=== PATIENT | female | born 1965 | race Caucasian/White ===

== ENCOUNTER 2017-01-05 18:52 | Emergency (ER) | payer OTHER ==
[~2017-01-05] VITALS: Ht 157.5 cm; Wt 67.6 kg
[2017-01-05 18:55] VITALS: BP_SYST 134
--- NOTE | 2017-01-05 18:55 | NUR ---
Patient to ER bed 5 to gown for evaluation. Side rails up. Report given to TEENA JASSO.
--- NOTE | 2017-01-05 19:05 | NUR ---
Patient AAO x4 laying down in bed, at bedside, c/o head ache to left side of face since last night with nausea and vomiting. Patient states she had history of migraines. Vital signs stable, no acute distress noted. Will continue to monitor.
--- NOTE | 2017-01-05 19:08 | NUR ---
ER at bedside examining patient.
[2017-01-05] MEDS ORDERED: METOCLOPRAMIDE HCL 10 MG/2 ML VIAL IVP ONE (19:15)
[2017-01-05] MEDS ORDERED: DIPHENHYDRAMINE INJ 50 MG/ML VIAL IVP ONE (19:15)
--- NOTE | 2017-01-05 19:20 | NUR ---
Patient vomiting in emesis bag. Md notified.
--- NOTE | 2017-01-05 19:49 | NUR ---
Patient to Radiology for CT scan.
--- NOTE | 2017-01-05 19:50 | NUR ---
Patient reports pain 3/10 15 minutes after administration of BENADRYL AND REGLAN. No adverse reactions noted. Will continue to monitor.
[2017-01-05 19:52] LABS: BASOPHILS % (AUTO) 0.4 % (0.0-2.0); EOSINOPHILS % (AUTO) 0.3 % (0.0-4.0); HEMATOCRIT 31.6 % (36-48); LYMPHOCYTES # (AUTO) 1.7 K/uL (1.0-5.5); LYMPHOCYTES % (AUTO) 17.4 % (20.5-51.5); MEAN CORPUSCULAR HEMOGLOBIN 24 pg (27-31); MEAN CORPUSCULAR HGB CONC 32 % (32-36); MEAN CORPUSCULAR VOLUME 77 fL (79.0-98.0); MONOCYTES # (AUTO) 0.5 K/uL (0.0-1.0); MONOCYTES % (AUTO) 5.4 % (1.7-9.3); NEUTROPHILS # (AUTO) 7.6 K/uL (1.8-7.7); NEUTROPHILS % (AUTO) 76.5 % (40.0-70.0); PLATELET COUNT (AUTO) 335 K/uL (130-430); RED CELL DISTRIBUTION WIDTH 17.1 % (9.0-15.0); WHITE BLOOD COUNT (AUTO) 9.8 K/uL (4.8-10.8)
[2017-01-05 19:57] LABS: CALCIUM 8.5 mg/dL (8.4-11.0); CREATININE 0.81 mg/dL (0.55-1.30); POTASSIUM 3.2 mmol/L (3.5-5.1)
[2017-01-05 20:01] LABS: ALBUMIN 3.9 g/dL (3.4-4.8); TOTAL BILIRUBIN 0.4 mg/dL (0.0-1.0); TOTAL PROTEIN, SERUM 7.3 g/dL (6.4-8.3)
[2017-01-05 21:07] VITALS: BP_SYST 125
--- NOTE | 2017-01-05 21:07 | NUR ---
Patient given written and verbal discharge instructions and verbalizes understanding. ER MD discussed with patient the results and treatment provided. Patient in stable condition. ID arm band removed. IV catheter removed intact and dressing applied, no active bleeding. Rx of Tramadol and Reglan given. Patient educated on pain management and to follow up with PMD. Pain Scale 0/10. Opportunity for questions provided and answered.
== END 2017-01-05 21:07 | disposition home or self-care (01) ==
LOC: SED 18:52
DX: G43.909 Migraine, unspecified, not intractable, without status migrainosus (principal)
CPT/HCPCS: 36415; 70450; 80053; 81025; 85025; 96361; 96374; 96375; 99285; J1200; J2765

== ENCOUNTER 2020-07-08 21:21 | Emergency (ER) | payer OTHER ==
[~2020-07-08] VITALS: Ht 157.5 cm; Wt 68.0 kg
[2020-07-08 22:40] VITALS: BP_SYST 142
[2020-07-08] MEDS ORDERED: OMEP20TA20 PO (22:53)
[2020-07-08] MEDS ORDERED: IMI50 PO (22:53)
[2020-07-09] MEDS ORDERED: KETOROLAC TROMETHAMINE 30 MG VIAL IM ONE (04:00)
[2020-07-09 05:02] VITALS: BP_SYST 130
== END 2020-07-09 05:02 | disposition home or self-care (01) ==
LOC: SED 21:21
DX: S13.9XXA Sprain of joints and ligaments of unspecified parts of neck, initial encounter (principal); S43.492A Other sprain of left shoulder joint, initial encounter; Z79.899 Other long term (current) drug therapy; X50.3XXA Overexertion from repetitive movements, initial encounter; Y93.89 Activity, other specified; Y92.89 Other specified places as the place of occurrence of the external cause; Y99.8 Other external cause status
CPT/HCPCS: 96372; 99283; J1885

== ENCOUNTER 2020-08-01 16:46 | Emergency (ER) | payer OTHER ==
[~2020-08-01] VITALS: Ht 157.5 cm; Wt 68.0 kg
[~2020-08-01 16:46] MED LIST: IMI50 PO; OMEP20TA20 PO
[2020-08-01 17:08] VITALS: BP_SYST 135
[2020-08-01] MEDS ORDERED: LORazepam 1 MG TABLET PO ONE (17:45)
[2020-08-01 19:31] VITALS: BP_SYST 132
== END 2020-08-01 19:31 | disposition home or self-care (01) ==
LOC: SED 16:46
DX: R13.10 Dysphagia, unspecified (principal); Z79.899 Other long term (current) drug therapy
CPT/HCPCS: 71045; 93005; 99283